=== PATIENT | female | born 1945 | race Caucasian/White ===

== ENCOUNTER → 2017-02-06 | Outpatient (CLI) | payer BC ==
[~2017-02-06] MED LIST: ACET1TAB84 PO; ASPI81TA28 PO; BNC4025 PO; CLTP PO; GLC500 PO; MULT-506 PO; SIMV20TA2 PO; WARF2TAB PO
[2017-02-06 11:43] LABS: CALCIUM 9.3 mg/dl (8.5-10.1)
[2017-02-06 11:49] LABS: ALT/SGPT 28 U/L (12-78); BLOOD UREA NITROGEN 31 mg/dl (7-18); CARBON DIOXIDE 25 mmol/L (21-32); CHLORIDE 105 mmol/L (98-107); CHOLESTEROL 173 mg/dl (0-200); GLUCOSE 109 mg/dl (70-99); POTASSIUM 4.3 mmol/L (3.5-5.1); SODIUM 139 mmol/L (136-145); TRIGLYCERIDES 211 mg/dl (0-150); VERY LOW DENSITY LIPOPROT CALC 42 mg/dl
[2017-02-06 11:59] LABS: ALB/GLOB RATIO 1.1 (0.9-2); ALKALINE PHOSPHATASE 80 U/L (45-117); AST/SGOT 19 U/L (15-37); HDL CHOLESTEROL 57 mg/dl; LDL CHOLESTEROL CALCULATED 74 mg/dl
[2017-02-06 12:19] LABS: ESTIMATED AVERAGE GLUCOSE 131 mg/dl; HA1C FLAG Normal (Normal)
== END | disposition home or self-care (01) ==
LOC: C.LABBC 08:00
PROVIDERS: ATTEND Internal Medicine Geriatric Medicine
DX: I12.9 Hypertensive chronic kidney disease with stage 1 through stage 4 chronic kidney disease, or unspecified chronic kidney disease (principal); M19.90 Unspecified osteoarthritis, unspecified site; E78.5 Hyperlipidemia, unspecified; I67.2 Cerebral atherosclerosis; N18.3 Chronic kidney disease, stage 3 (moderate); E11.22 Type 2 diabetes mellitus with diabetic chronic kidney disease

== ENCOUNTER → 2017-02-24 | Outpatient (CLI) | payer BC ==
--- NOTE | 2017-02-24 11:52 | DIAGNOSTIC IMAGING REPORT ---
LEFT HIP UNILATERAL 2 VIEWS CLINICAL HISTORY: Left hip pain COMPARISON: None. DISCUSSION: No fractures or dislocations are visualized. The joint space appears well-preserved for age. There are no erosive or destructive changes. IMPRESSION: Unremarkable conventional radiographic evaluation of the left hip for age Electronically signed by: Rick Cooney M.D. 02/24/2017 11:51 AM Dictated Date/Time: 02/24/2017 11:50 AM
--- NOTE | 2017-02-24 12:07 | DIAGNOSTIC IMAGING REPORT ---
LUMBAR SPINE 5 VIEWS HISTORY: Pain M25.552 Hip pain, left COMPARISON: None. FINDINGS: Mild lumbar scoliosis. Slight grade 1 anterolisthesis of L4 and L5. This presumably secondary to degenerative changes of the posterior elements. Moderate degenerative disc change most prominent from L3 through S1. IMPRESSION: Scoliosis. Degenerative disc change. Electronically signed by: Lam Luther M.D. 02/24/2017 12:06 PM Dictated Date/Time: 02/24/2017 12:05 PM
== END | disposition home or self-care (01) ==
LOC: C.RADBC 11:14
PROVIDERS: ATTEND Internal Medicine Geriatric Medicine
DX: M25.552 Pain in left hip (principal)

== ENCOUNTER → 2017-03-21 | Outpatient (CLI) | payer BC ==
--- NOTE | 2017-03-21 15:09 | MAMMOGRAPHY REPORT ---
BILATERAL DIGITAL SCREENING MAMMOGRAM WITH CAD: 03/21/2017 CLINICAL HISTORY: Routine screening. Patient has no complaints. TECHNIQUE: Current study was also evaluated with a Computer Aided Detection (CAD) system. Bilateral CC and MLO views were obtained. COMPARISON: Comparison is made to exams dated: 03/19/2016 mammogram, 03/14/2015 mammogram, 03/13/2012 ma mmogram, 03/08/2013 mammogram, and 03/05/2012 mammogram - [facility]. BREAST COMPOSITION: The tissue of both breasts is almost entirely fatty. FINDINGS: No suspicious masses, calcifications, or areas of architectural distortion are noted in ei ther breast. There has been no significant interval change compared to prior exams. IMPRESSION: ACR BI-RADS CATEGORY 1: NEGATIVE There is no mammographic evidence of malignancy. A 1 year screening mammogram is recommended. The pa tient will receive written notification of the results. Approximately 10% of breast cancers are not detected with mammography. A negative mammographic report should not delay biopsy if a clinically suggestive mass is present. Tena Meza M.D. ah/:03/21/2017 12:24:28 Endoscopy Specialty Technician: Kaycee ALEMAN(Amrit)(M), [facility] letter sent: Normal 1/2 BI-RADS Code: ACR BI-RADS Category 1: Negative
== END | disposition home or self-care (01) ==
LOC: C.MAMM 09:08
PROVIDERS: ATTEND Obstetrics & Gynecology
DX: Z12.31 Encounter for screening mammogram for malignant neoplasm of breast (principal)

== ENCOUNTER → 2017-04-11 | Outpatient (CLI) | payer BC ==
[~2017-04-11] MED LIST changes: -GLC500 PO; -WARF2TAB PO
[2017-04-11 10:56] LABS: BASO % 0.4 %; BASO ABS # 0.02 K/uL (0-0.2); COMPLETE YES; EOS % 1.9 %; HEMATOCRIT 43.6 % (37-47); IG% 0.2 %; LYMPH % 24.9 %; LYMPH ABS # 1.31 K/uL (1.2-3.4); MEAN CELL VOLUME 94.4 fL (80-100); MEAN CORPUSCULAR HEMOGLOBIN 30.3 pg (25-34); MEAN CORPUSCULAR HGB CONC 32.1 g/dl (32-36); MEAN PLATELET VOLUME 10.5 fL (7.4-10.4); MONO % 8.2 %; NEUT % 64.4 %; PLATELET COUNT 221 K/uL (130-400); RED BLOOD COUNT 4.62 M/uL (4.2-5.4); WHITE BLOOD COUNT 5.27 K/uL (4.8-10.8)
[2017-04-11 11:08] LABS: BLOOD UREA NITROGEN 30 mg/dl (7-18); BUN/CREATININE RATIO 26.9 (10-20); CARBON DIOXIDE 28 mmol/L (21-32); CHLORIDE 105 mmol/L (98-107); GLUCOSE 111 mg/dl (70-99); MAGNESIUM 2.2 mg/dl (1.8-2.4); PHOSPHORUS 2.8 mg/dl (2.5-4.9); POTASSIUM 3.9 mmol/L (3.5-5.1); SODIUM 138 mmol/L (136-145)
[2017-04-11 11:14] LABS: URINE APPEARANCE CLEAR (CLEAR); URINE BILIRUBIN NEG (NEG); URINE COLOR YELLOW; URINE EPITHELIAL CELL AUTO >30 /lpf (0-5); URINE NITRITE NEG (NEG); URINE PH 6.5 (4.5-7.5); URINE SPECIFIC GRAVITY 1.023 (1.000-1.030); UROBILINOGEN NEG (NEG); ZZUR CULT IF INDIC CLEAN CATCH NO
[2017-04-11 11:20] LABS: URINE PROTIEN/CREAT RATIO 0.3 (0-0.2); URINE TOTAL PROTEIN 34.5 mg/dl (0-11.9)
[2017-04-11 11:32] LABS: MANUAL MICROSCOPIC REQUIRED? NO; REVIEW REQ? YES
== END | disposition home or self-care (01) ==
LOC: C.LABBC 08:36
PROVIDERS: ATTEND Internal Medicine Nephrology
DX: N18.3 Chronic kidney disease, stage 3 (moderate) (principal)

== ENCOUNTER → 2017-04-30 | Day surgery (SDC) | payer BC ==
[2017-04-03 09:48] VITALS: Ht 157.5 cm; Wt 93.2 kg
[~2017-04-30] VITALS: Ht 157.5 cm; Wt 93.2 kg
[~2017-04-30] MED LIST changes: +IOPAMIDOL INJ 61% 15 ML VIAL ONE; +LIDOCAINE HCL 1% MPF 5 ML VIAL ONE; +SODIUM CHLORIDE 0.9% INJ 10 ML VIAL ONE
--- NOTE | 2017-04-30 13:55 | History & Physical Bridge - SC ---
H&P Re-Evaluation Bridge Note: I have examined the patient, reviewed the History & Physical and in the interval since the performance of the History & Physical I have noted the following changes of clinical significance: No changes noted
[2017-04-30 14:18] VITALS: TEMP 36.7
--- NOTE | 2017-04-30 14:19 | Discharge Instructions ---
Discharge Instructions Date of Service Apr 30, 2017. Visit Reason for Visit: Lumbar Radiculopathy Discharge Discharge Diagnosis / Problem: right leg pain Discharge Goals Goal(s): Decrease discomfort, Improve function Medications Stopped Medications Name(s): Irais Took it yesterday. Dr. Ashley aware. Activity Recommendations Activity Limitations: resume your previous activity Anesthesia . Post Anesthesia Instructions: If you have had General Anesthesia or IV Sedation: * Do not drive today. * Resume driving when surgeon permits. * Do not make important decisions or sign legal documents today. * Call surgeon for: 1. Temperature elevations greater than 101 degrees F. 2. Uncontrollable pain. 3. Excessive bleeding. 4. Persistent nausea and vomiting. 5. Medication intolerance (nausea, vomiting or rash). * For nausea and vomiting use only clear liquids such as: tea, soda, bouillon until nausea subsides, then gradually increase diet as tolerated. * If you have any concerns or questions, call your surgeon's office. If physician is unavailable and it is an emergency, call 911 or go to the nearest emergency room. . Diet Recommendations Recommended Home Diet: resume previous diet Procedures Procedures Performed: CAUDAL EPIDURAL STEROID INJECTION Pending Studies Studies pending at discharge: no Medical Emergencies . Who to Call and When: Medical Emergencies: If at any time you feel your situation is an emergency, please call 911 immediately. . Non-Emergent Contact Non-Emergency issues call your: Specialist . . "Provider Documentation" section prepared by Valdez Ashley. .
--- NOTE | 2017-04-30 14:27 | OPERATIVE REPORT ---
DATE OF OPERATION: 04/30/2017 PREOPERATIVE DIAGNOSIS: Lumbar foraminal stenosis with a right L5 radiculopathy. POSTOPERATIVE DIAGNOSIS: Same. PROCEDURE: Caudal epidural steroid injection under fluoroscopic guidance. SURGEON: Dr. Valdez Ashley. INDICATIONS: The patient is a 71-year-old white female who presents today for an epidural injection and was scheduled for an intralaminar approach. However, she took aspirin this morning. Because it is L5 radiculopathy the caudal approach will be able to reach the L5 nerve root and will proceed in that fashion. She has radicular complaints that have not responded to conservative treatment. PHYSICAL EXAMINATION: Pleasant female seated comfortably in no apparent distress. MUSCULOSKELETAL EXAMINATION: Intact sensation distally, normal strength. Negative seated straight leg raises. Lumbar spine with some midline tenderness. CONSENT: Verbal and written consent was obtained from the patient. Risks and benefits were reviewed. Risks include but are not limited to epidural abscess, allergic reaction. She wishes to proceed. PROCEDURE: The patient was taken back to the special procedures room of [facility]. She was maintained in a prone position. Backside was cleansed with Betadine x3 and a dry sterile dressing was applied. Fluoroscope was used to identify the sacral hiatus and the overlying skin was anesthetized with 4 mL of lidocaine 1% with a 25 gauge 1.5-inch needle. A 25 gauge 3.5 inch spinal needle was then directed under fluoroscopic guidance into the sacral canal. It was advanced under lateral fluoroscopic guidance. She then underwent to about a 0.5 cm from the hub of the needle through the skin. She then underwent injection after negative aspiration of 40 mg of Depo-Medrol, 4 mL of preservative free sodium chloride. Injection was well tolerated. DISPOSITION: 1. The patient is taken out into the discharge recovery area where she will be discharged home once discharge criteria have been met. 2. Follow up in the [facility] office in 2-4 weeks. I attest to the content of the Intraoperative Record and any orders documented therein. Any exception s are noted below.
[2017-04-30 14:28] VITALS: BP 132/80; PULSE 70; O2SAT 97
== END | disposition home or self-care (01) ==
LOC: X.SURG 12:54
PROVIDERS: ATTEND Physical Medicine & Rehabilitation
DX: M48.06 Spinal stenosis, lumbar region (principal); M54.16 Radiculopathy, lumbar region; E11.9 Type 2 diabetes mellitus without complications; Z96.653 Presence of artificial knee joint, bilateral

== ENCOUNTER → 2017-05-20 | Outpatient (CLI) | payer BC ==
[~2017-05-20] MED LIST changes: -IOPAMIDOL INJ 61% 15 ML VIAL ONE; -LIDOCAINE HCL 1% MPF 5 ML VIAL ONE; -SODIUM CHLORIDE 0.9% INJ 10 ML VIAL ONE
== END | disposition home or self-care (01) ==
LOC: C.PAPS 15:10
PROVIDERS: ATTEND Obstetrics & Gynecology
DX: Z12.4 Encounter for screening for malignant neoplasm of cervix (principal); Z08 Encounter for follow-up examination after completed treatment for malignant neoplasm

== ENCOUNTER → 2017-06-13 | Outpatient (CLI) | payer BC ==
--- NOTE | 2017-06-13 16:37 | DIAGNOSTIC IMAGING REPORT ---
LUMBAR SPINE W/O CONTRAST CLINICAL HISTORY: 72 years-old Female with RIGHT LUMBAR RADICULOPATHY. Acute low back pain with radiation into the right lower extremity with associated numbness. History of prior hysterectomy with uterine carcinoma. COMPARISON: Lumbar spine radiographs 02/24/2017, renal ultrasound 08/14/2015 TECHNIQUE: Multiplanar, multi sequence MRI of the lumbar spine was performed without intravenous contrast. FINDINGS: Right kidney is markedly atrophic. No acute intra-abdominal, intrapelvic or paraspinal abnormality identified. There is 6 mm anterolisthesis of L4 on L5 which appears unchanged from comparison radiographs. Severe intervertebral disc space narrowing noted at L3-L4 with Modic 3 endplate degenerative changes. Moderate intervertebral disc space narrowing noted at T9-T10. Multilevel severe facet arthropathy is noted as below. Signal within the cord is within normal limits. Conus medullaris terminates at the T12-L1 level. No focal compression fracture or marrow replacing process identified. Mild bone marrow edema noted within the right pedicle of L5 seen on image 5 of series 5 without fracture line suggesting stress response. T12-L1: No central canal or neural foraminal stenosis. Moderate facet arthropathy. L1-L2: No central canal or neural foraminal stenosis. Moderate facet arthropathy. L2-L3: No central canal or neural foraminal stenosis. Moderate to severe facet arthropathy. Ligamentum flavum thickening. L3-L4: Severe intervertebral disc space narrowing with circumferential annular disc bulge. Broad-based disc osteophyte complex involving the left lateral recess and left foramen is noted in addition to severe facet arthrosis and ligamentum flavum redundancy. There is mild central canal, moderate left lateral recess and moderate to severe left foraminal narrowing. Right foramen is patent. L4-L5: Grade 1 anterolisthesis with moderate disc space uncovering. Additionally, there is broad-based posterior disc bulge centrally with annular tear, severe facet arthrosis and ligamentum flavum redundancy. These changes cause severe central canal stenosis measuring only 3 mm in AP dimension. There is moderate to severe right and mild left foraminal stenosis. L5-S1: Moderate intervertebral disc space narrowing with posterior spondylitic spurring, circumferential annular disc bulge, severe facet arthrosis with ligamentum flavum redundancy. There is effacement of the ventral thecal sac without significant central canal narrowing. There is severe right and moderate left foraminal narrowing. IMPRESSION: 1. Unchanged grade 1 anterolisthesis at L4-L5 is noted in addition to moderate disc space uncovering along with a broad-based central posterior disc bulge, annular tear, severe facet arthropathy and ligamentum flavum redundancy causing severe central canal, moderate to severe right and mild left foraminal stenosis. 2. At L3-L4, degenerative changes as above cause mild central canal, moderate left lateral recess and moderate to severe left foraminal narrowing. 3. At L5-S1, degenerative changes as above cause severe right and moderate left foraminal stenosis. 4. Markedly atrophic right kidney redemonstrated. 5. Mild bone marrow edema involving the right pedicle at L5 suggests stress response without fracture. The above report was generated using voice recognition software. It may contain grammatical, syntax or spelling errors. Electronically signed by: Mike Simons M.D. 06/13/2017 4:36 PM Dictated Date/Time: 06/13/2017 4:26 PM
== END | disposition home or self-care (01) ==
LOC: C.MRIBC 15:17
PROVIDERS: ATTEND Physical Medicine & Rehabilitation
DX: M51.16 Intervertebral disc disorders with radiculopathy, lumbar region (principal); M48.07 Spinal stenosis, lumbosacral region; M89.8X8 Other specified disorders of bone, other site; N26.1 Atrophy of kidney (terminal)

== ENCOUNTER → 2017-09-01 | Outpatient (CLI) | payer BC ==
[2017-09-01 10:53] LABS: BASO % 0.4 %; BASO ABS # 0.02 K/uL (0-0.2); COMPLETE YES; EOS % 1.7 %; IG% 0.2 %; LYMPH ABS # 1.16 K/uL (1.2-3.4); MEAN CELL VOLUME 95.8 fL (80-100); MEAN CORPUSCULAR HEMOGLOBIN 30.5 pg (25-34); MEAN CORPUSCULAR HGB CONC 31.9 g/dl (32-36); MEAN PLATELET VOLUME 10.3 fL (7.4-10.4); MONO % 6.8 %; NEUT % 66.9 %; PLATELET COUNT 193 K/uL (130-400); RED BLOOD COUNT 4.49 M/uL (4.2-5.4); WHITE BLOOD COUNT 4.83 K/uL (4.8-10.8)
[2017-09-01 11:13] LABS: ALT/SGPT 30 U/L (12-78); AST/SGOT 18 U/L (15-37); BLOOD UREA NITROGEN 36 mg/dl (7-18); BUN/CREATININE RATIO 28.9 (10-20); CALCIUM 8.9 mg/dl (8.5-10.1); CARBON DIOXIDE 28 mmol/L (21-32); CHLORIDE 103 mmol/L (98-107); CREATININE 1.26 mg/dl (0.60-1.20); GLUCOSE 151 mg/dl (70-99); POTASSIUM 3.5 mmol/L (3.5-5.1); SODIUM 136 mmol/L (136-145)
[2017-09-01 11:28] LABS: ALKALINE PHOSPHATASE 89 U/L (45-117); CHOLESTEROL 173 mg/dl (0-200); HDL CHOLESTEROL 58 mg/dl; LDL CHOLESTEROL CALCULATED 70 mg/dl; TRIGLYCERIDES 225 mg/dl (0-150); VERY LOW DENSITY LIPOPROT CALC 45 mg/dl
[2017-09-01 12:04] LABS: ESTIMATED AVERAGE GLUCOSE 134 mg/dl; HA1C FLAG Normal (Normal)
== END | disposition home or self-care (01) ==
LOC: C.LABBC 08:39
PROVIDERS: ATTEND Internal Medicine Geriatric Medicine
DX: I12.9 Hypertensive chronic kidney disease with stage 1 through stage 4 chronic kidney disease, or unspecified chronic kidney disease (principal); M19.90 Unspecified osteoarthritis, unspecified site; N18.3 Chronic kidney disease, stage 3 (moderate); E78.5 Hyperlipidemia, unspecified; E11.29 Type 2 diabetes mellitus with other diabetic kidney complication; Z68.41 Body mass index [BMI] 40.0-44.9, adult

== ENCOUNTER → 2017-11-19 | Outpatient (CLI) | payer BC ==
[2017-11-19 11:25] LABS: BLOOD UREA NITROGEN 34 mg/dl (7-18); CALCIUM 9.3 mg/dl (8.5-10.1); CARBON DIOXIDE 27 mmol/L (21-32); CREATININE 1.18 mg/dl (0.60-1.20); GLUCOSE 130 mg/dl (70-99); PHOSPHORUS 3.2 mg/dl (2.5-4.9); SODIUM 136 mmol/L (136-145)
== END | disposition home or self-care (01) ==
LOC: C.LABBC 08:11
PROVIDERS: ATTEND Internal Medicine Nephrology
DX: N18.3 Chronic kidney disease, stage 3 (moderate) (principal)